=== PATIENT | female | born 1965 | race Caucasian/White ===

== ENCOUNTER 2024-04-30 18:23 | Emergency (ER) | payer BC ==
[2024-04-30 18:56] VITALS: BP 128/76; O2SAT 99
--- NOTE | 2024-04-30 19:49 | ED Physician Documentation ---
History of Present Illness - Stated complaint Stated Complaint: L HAND LAC - Chief complaint Chief Complaint: Trauma Ext - History obtained from History obtained from: Patient - Additonal information Additional information: 58-year-old female presenting with a left index finger laceration. 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 Bleeding was brisk at home and she had a throbbing burning pain therefore she came into the ER. She did apply Steri-Strips and use a cool compress which has helped with the bleeding. It still very uncomfortableHowever. She states she is up-to-date on her tetanus. PD PAST MEDICAL HISTORY - Past Medical History Past Medical History: No - Past Surgical History Past Surgical History: Yes - Present Medications Home Medications: Ambulatory Orders Medication Instructions Recorded Confirmed Lisdexamfetamine Dimesylate 30 mg PO DAILY 04/30/24 04/30/24 [Vyvanse] Lisdexamfetamine Dimesylate 50 mg PO DAILY 04/30/24 04/30/24 [Vyvanse] - Allergies Allergies/Adverse Reactions: Allergies Allergy/AdvReac Type Severity Reaction Status Date / Time No Known Drug Allergies Allergy Verified 04/30/24 18:39 - Social History Does the pt smoke?: No Smoking Status: Former smoker Does the pt drink ETOH?: Yes ETOH Use: Wine Does the pt have substance abuse?: No PD ED PE NORMAL - Vitals Vital signs reviewed: Yes - General General: Alert and oriented X 3, No acute distress - Derm Derm: Normal color, Warm and dry, Other (2 cm laceration over the finger pad of the left index finger. No tendon involvement, able to flex and extend. Not currently bleeding.) - Extremities Extremities: No deformity, Other (Tenderness with palpation of the left index finger, no gross bony deformity able to flex and extend the finger without difficulty. There is a laceration of the finger pad, no nail or tendon involvement.) Results - Vitals Vitals: Vital Signs - 24 hr 04/30/24 18:35 Temperature 36.5 C Heart Rate 70 Respiratory 18 Rate Blood Pressure 128/76 O2 Saturation 99 Oxygen O2 Source Room air PD Medical Decision Making - ED course Complexity details: d/w patient ED course: 58-year-old female presented with a left index finger laceration as described in HPI. She had done some wound care prior to arrival including Steri-Strips and a cool compress and the bleeding has actually stopped. The wound is deep but comes together very easily and is not currently bleeding. Therefore I recommended that we utilize Dermabond and replaced the Steri-Strips, I do not see indication for sutures as this is not overlying any high tension area or any flexor extension surfaces. Patient agreeable. The wound was cleaned with Hibiclens and normal saline and then Dermabond was applied with excellent wound edge approximation and hemostasis. The Steri-Strips were then placed over the skin glue and a Band-Aid applied. Patient tolerated well. She is up-to-date on her tetanus. Advised home wound care instructions as well as return precautions, recommended cool compress, Tylenol ibuprofen for pain and return if any signs of infection. Departure - Departure Disposition: 01 Home, Self Care Clinical Impression: Finger laceration Qualifiers: Encounter type: initial encounter Finger: index finger Damage to nail status: without damage Foreign body presence: without foreign body Laterality: left Qualified Code(s): S61.211A - Laceration without foreign body of left index finger without damage to nail, initial encounter Condition: Good Instructions: ED Laceration Ext Skin Glue Comments: You did a good job treating your hand laceration and the bleeding stopped before I saw you. It appears to be doing well and therefore we put skin glue on it and some new Steri-Strips. Try to keep this area dry, return for any signs of infection such as redness swelling or purulent drainage. You can take Tylenol or ibuprofen and use a cool compress to help with the throbbing pain. The pain should improve over the next couple of days but you do have a lot of nerve endings in the fingertip that make it more painful. Forms: PCP List
== END 2024-04-30 19:53 | disposition home or self-care (01) ==
LOC: ED 18:23
DX: S61.211A Laceration without foreign body of left index finger without damage to nail, initial encounter (principal); W26.8XXA Contact with other sharp object(s), not elsewhere classified, initial encounter; Y93.89 Activity, other specified; Y92.009 Unspecified place in unspecified non-institutional (private) residence as the place of occurrence of the external cause; Z79.899 Other long term (current) drug therapy; Z87.891 Personal history of nicotine dependence
CPT/HCPCS: 12001; 99281

== ENCOUNTER 2024-07-23 17:13 | Emergency (ER) | payer BC ==
[2024-07-23 17:24] VITALS: BP 137/86; O2SAT 731
--- NOTE | 2024-07-23 17:28 | ED Physician Documentation ---
History of Present Illness - Stated complaint Stated Complaint: BAT EXPOSURE - Chief complaint Chief Complaint: General - History obtained from History obtained from: Patient (A few times in the last few weeks she had woken up and there was a bat in her room. Her daughter is also being treated for rabies. 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 HEENT: None Psych: None Musculoskeletal: None Derm: None - Past Surgical History Past Surgical History: Yes - Present Medications Home Medications: Ambulatory Orders Medication Instructions Recorded Confirmed Lisdexamfetamine Dimesylate 30 mg PO DAILY 04/30/24 04/30/24 [Vyvanse] Lisdexamfetamine Dimesylate 50 mg PO DAILY 04/30/24 04/30/24 [Vyvanse] - Allergies Allergies/Adverse Reactions: Allergies Allergy/AdvReac Type Severity Reaction Status Date / Time No Known Drug Allergies Allergy Verified 07/23/24 17:21 - Social History Does the pt smoke?: No Smoking Status: Never smoker Does the pt drink ETOH?: Yes Does the pt have substance abuse?: No - Immunizations Immunizations are current?: Yes - POLST Patient has POLST: No PD ED PE NORMAL - Vitals Vital signs reviewed: Yes - General General: Alert and oriented X 3, No acute distress - Neuro Neuro: Alert and oriented X 3, Normal speech - Psych Psych: Normal mood, Normal affect Results - Vitals Vitals: Vital Signs - 24 hr 07/23/24 17:14 Temperature 36.8 C Heart Rate 73 Respiratory 15 Rate Blood Pressure 137/86 H O2 Saturation 731 H Oxygen O2 Source Room air PD Medical Decision Making - ED course ED course: We had a long discussion about rabies and treatment and there was not a clear exposure but she would like to go forward with prophylaxis. Departure - Departure Disposition: 01 Home, Self Care Clinical Impression: Rabies exposure Condition: Good Record reviewed to determine appropriate education?: Yes Instructions: Rabies, Rabies Vaccine suspension for injection, Rabies Immune Globulin human RIG solution for injection Comments: You will need to have repeat rabies vaccine in 3 days, on Saturday, since it Saturday you should return here for that. Then you will need to have a vaccine next in the after. You can contact your primary care physician to [place] [facility] is doing. Return if worse.
[2024-07-23] MEDS: RABIES IMMUNE GLOBULIN 300 UNITS/2 ML IM STA (17:57)
[2024-07-23] MEDS: RABIES VACCINE 2.5 UNIT SYRINGE IM ONE (17:57)
== END 2024-07-23 18:28 | disposition home or self-care (01) ==
LOC: ED 17:13
DX: Z20.3 Contact with and (suspected) exposure to rabies (principal); Z23 Encounter for immunization
CPT/HCPCS: 90471; 96372; 99282; 99283

== ENCOUNTER 2024-07-26 14:16 | Emergency (ER) | payer BC ==
[2024-07-26 14:31] VITALS: O2SAT 100
--- NOTE | 2024-07-26 15:04 | ED Physician Documentation ---
History of Present Illness - Stated complaint Stated Complaint: 2ND RABIES VAC - Chief complaint Chief Complaint: General - History obtained from History obtained from: Patient - History of Present Illness Timing: Today Pain level max: 0 Pain level now: 0 - Additonal information Additional information: 58-year-old female here for her second rabies vaccination. Has no complaints. 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 HEENT: None Psych: None Musculoskeletal: None Derm: None - Past Surgical History Past Surgical History: Yes - Present Medications Home Medications: Ambulatory Orders Medication Instructions Recorded Confirmed Lisdexamfetamine Dimesylate 30 mg PO DAILY 04/30/24 04/30/24 [Vyvanse] Lisdexamfetamine Dimesylate 50 mg PO DAILY 04/30/24 04/30/24 [Vyvanse] - Allergies Allergies/Adverse Reactions: Allergies Allergy/AdvReac Type Severity Reaction Status Date / Time cephalexin [From Keflex] Allergy Emesis Verified 07/26/24 14:24 - Social History Does the pt smoke?: No Smoking Status: Never smoker Does the pt drink ETOH?: Yes Does the pt have substance abuse?: No - Immunizations Immunizations are current?: Yes - POLST Patient has POLST: No PD ED PE NORMAL - Vitals Vital signs reviewed: Yes - General General: Alert and oriented X 3, No acute distress - HEENT HEENT: Moist mucous membranes - Derm Derm: Warm and dry - Neuro Neuro: Alert and oriented X 3 Results - Vitals Vitals: Vital Signs - 24 hr 07/26/24 14:21 Temperature 36.8 C Heart Rate 60 Respiratory 16 Rate Blood Pressure 133/82 H O2 Saturation 100 Oxygen O2 Source Room air PD Medical Decision Making - ED course Complexity details: considered differential, d/w patient ED course: Patient is here for her second rabies vaccination. Has no symptoms and no complaints. Given her second rabies vaccination. Will follow-up with her PCP for her third and fourth vaccinations. Departure - Departure Disposition: 01 Home, Self Care Clinical Impression: Encounter for repeat administration of rabies vaccination, Rabies exposure Condition: Good Instructions: Rabies Vaccine suspension for injection, Rabies Vaccine series in [facility] Comments: Please follow-up as previously directed
[2024-07-26] MEDS: RABIES VACCINE 2.5 UNIT SYRINGE IM ONE (15:06)
[2024-07-26 15:28] VITALS: BP 128/80
== END 2024-07-26 15:22 | disposition home or self-care (01) ==
LOC: ED 14:16
DX: Z20.3 Contact with and (suspected) exposure to rabies (principal)
CPT/HCPCS: 90471; 99282